=== PATIENT | male | born 1945 | race Caucasian/White ===

== ENCOUNTER 2021-09-07 00:57 | Outpatient (CLI) | payer MEDICARE, BC, SELFPAY ==
[2021-09-07] MEDS: Normal Saline Flush 10 ML SYR IVP (12:16)
[2021-09-07] MEDS: Gadoterate meglumine 20 ML VIAL IVP (12:16)
--- NOTE | 2021-09-07 12:50 | DI.MRI_ITS ---
Exam(s) MR IAC BRAIN WO/W EXAM: MR IAC BRAIN WO/W CLINICAL HISTORY: Sudden left-sided sensorineural hearing loss,VERTIGO,R42,H90.42,H91.20,H93. TECHNIQUE: Multiplanar multisequence MRI of the brain was performed. Both noninfused and contrast i nfused sequences were performed. IV Contrast injected was 20 cc Dotarem. COMPARISON: No exams were available for comparison FINDINGS: INTERNAL AUDITORY CANALS: There is no evidence of mass in the cerebellopontine angles and no evidence of intra canalicular acoustic neuroma. The 7th and 8th cranial nerves appear unremarkable bilateral ly. 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 The posterior inferior cerebellar arteries thus arise off of the vertebral arteries at a lateral that is higher than typical and the left posterior inferior cerebral artery is adjacent to the 7th and 8th nerves in the cerebellopontine angle. The 5th-trigeminal nerves appear unremarkable in the extra-axial space as a head forward towards Meck el's caves. CEREBRAL PARENCHYMA: No evidence of intracranial hemorrhage, mass effect nor shift of midline structu re. No extraaxial fluid collections. Ventricles are not enlarged nor shifted. There is no significant focal signal abnormality in the cerebellar hemispheres nor within the clay po ns and midbrain. There are multiple foci sub cm signal abnormality in [place] in supra ventricular white matter which are probably related chronic ischemic changes. These do not exhibit abnormal signal on diffusion imagin g to suggest restricted diffusion. There are no ring enhancing lesions in the brain. There is no abnormal meningeal enhancement. PITUITARY GLAND: No mass nor parasellar abnormality. No obvious abnormality in the cavernous sinuses. FLOW VOIDS: The expected flow void are noted. No evidence of obvious aneurysm nor obvious vascular ma lformation. PARANASAL SINUSES: Mucosal thickening both maxillary sinuses noted, not associated with fluid levels therein. Also mucosal thickening ethmoidal air cells bilaterally. Sphenoid sinuses and frontal sinu ses are clear, as are the mastoid air cells. ORBITS: No obvious abnormal findings. IMPRESSION: 1. No evidence of mass in the cerebellopontine angles nor evidence of intra canalicular acoustic neur lexa-schwannoma. 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 The left posterior inferior cerebellar artery comes off of the high left vertebral artery at this low and is medially adjacent to the 7th and 8th cranial nerves in the left cerebellopontine angle. 2. No ring enhancing lesions in the brain nor abnormal meningeal enhancement 3. There is abundant bilateral periventricular white matter disease, most probably are chronic ische opal changes. However, there is no abnormal signal to suggest restricted diffusion (acute infarction) on DWI. Sinus mucosal disease as described above. DATA REPOSITORY:
== END 2021-09-07 01:17 ==
PROVIDERS: Visit Provider Otolaryngology
DX: H90.42 Sensorineural hearing loss, unilateral, left ear, with unrestricted hearing on the contralateral side (principal); H93.12 Tinnitus, left ear; R42 Dizziness and giddiness; R90.82 White matter disease, unspecified; J32.8 Other chronic sinusitis; R94.02 Abnormal brain scan
CPT/HCPCS: 70553